=== PATIENT | female | born 1985 | race Caucasian/White ===

== ENCOUNTER 2018-08-19 12:24 | Emergency (ER) | payer OTHER ==
[~2018-08-19] VITALS: Ht 162.6 cm; Wt 74.8 kg
[~2018-08-19 12:24] MED LIST: ACETAMINOPHEN-1 EAC1 PO; BACTRIM DS TAB1 EACH PO; BENADRYL25 MG PO; CELEXA 20 MG TA20 M1 PO; CIPROFLOXACIN500 M1 PO; FLOMAX PO; IBUPROFEN 800800 M1 PO; KEFLEX500 MG; NAPROSYN500 MG PO; NOHOMEMEDICATIONS; NORCO 5-325 TA1 EACH PO; PERCOCET 5-3251 EACH PO; PERCOCET PO; PHENERGAN 25 MG25 M1 PO; PRENATAL PLUS1 EAC4 PO; STOMACH MED; ZOFRAN 4 MG ORAL4 M1 DIS; ZPAK PO
[2018-08-19] MEDS ORDERED: OMEPRAZOLE40 MG PO (12:50)
[2018-08-19] MEDS ORDERED: ADIPEX-P37.5 M1 PO (12:50)
[2018-08-19 13:12] LABS: URINE BILIRUBIN NEGATIVE (Negative); URINE BLOOD NEGATIVE (Negative); URINE CLARITY CLEAR; URINE COLOR YELLOW; URINE GLUCOSE-RANDOM NEGATIVE (Negative); URINE KETONES NEGATIVE (Negative); URINE LEUKOCYTES-REFLEX NEGATIVE (Negative); URINE NITRITE-REFLEX NEGATIVE (Negative); URINE PROTEIN NEGATIVE (Negative); URINE UROBILINOGEN 0.2 E.U./dl (0.2-1.0)
[2018-08-19 13:31] LABS: HEMATOCRIT 36.3 % (37.0-47.0); HEMOGLOBIN 12.6 gm/dL (12.0-15.0); MCH 27.7 pg (26.0-34.0); MCHC 34.7 g/dL (28.0-37.0); MCV 79.8 fL (80.0-100.0); MPV 8.2 fl. (7.2-11.1); NUCLEATED RBCS 0 /100WBC; PLATELET COUNT* 219 thou/uL (150-400); RBC 4.54 mil/uL (4.20-5.00); RDW-CV 13.4 % (10.5-14.5); WBC 12.2 thou/uL (4.0-11.0)
[2018-08-19 13:37] LABS: CALCIUM 8.8 mg/dL (8.5-10.1); CREATININE 0.7 mg/dL (0.6-1.3); POTASSIUM 3.9 mmol/L (3.5-5.1)
[2018-08-19 13:41] LABS: ALBUMIN 3.9 g/dL (3.4-5.0); TOTAL BILIRUBIN 0.4 mg/dL (<0.1-1.0)
[2018-08-19 13:58] LABS: ABSOLUTE BASOPHILS 0.1 thou/uL (0.0-0.2); ABSOLUTE EOSINOPHILS 0.1 thou/uL (0.0-0.7); ABSOLUTE LYMPHOCYTES 1.1 thou/uL (0.8-5.3); ABSOLUTE MONOCYTES 0.1 thou/uL (0.0-1.2); ABSOLUTE NEUTROPHILS 10.7 thou/uL (1.6-8.1)
[2018-08-19 14:00] LABS: PLATELET ESTIMATE ADEQUATE
[2018-08-19 16:00] VITALS: BP 135/80
== END 2018-08-19 16:00 | disposition home or self-care (01) ==
LOC: M.ERS 12:24
PROVIDERS: Nurse Practitioner Family
DX: K62.89 Other specified diseases of anus and rectum (principal); R19.7 Diarrhea, unspecified; J45.909 Unspecified asthma, uncomplicated; Z88.5 Allergy status to narcotic agent; Z88.8 Allergy status to other drugs, medicaments and biological substances; Z90.49 Acquired absence of other specified parts of digestive tract; Z90.89 Acquired absence of other organs

== ENCOUNTER 2019-06-30 23:48 | Emergency (ER) | payer OTHER ==
[~2019-06-30] VITALS: Ht 165.1 cm; Wt 63.5 kg
[~2019-06-30 23:48] MED LIST changes: +ADIPEX-P37.5 M1 PO; +OMEPRAZOLE40 MG PO
[2019-07-01 00:09] LABS: ABSOLUTE EOSINOPHILS 0.1 thou/uL (0.0-0.7); ABSOLUTE LYMPHOCYTES 2.4 thou/uL (0.8-5.3); ABSOLUTE MONOCYTES 0.5 thou/uL (0.0-1.2); ABSOLUTE NEUTROPHILS 6.7 thou/uL (1.6-8.1); BASOPHILS 0.5 %; EOSINOPHILS 1.4 %; HEMOGLOBIN 13.3 gm/dL (12.0-15.0); LYMPHOCYTES 24.6 %; MCH 28.3 pg (26.0-34.0); MCHC 34.9 g/dL (28.0-37.0); MCV 81.1 fL (80.0-100.0); MONOCYTES 4.9 %; MPV 7.8 fl. (7.2-11.1); NUCLEATED RBCS 0 /100WBC; PLATELET COUNT* 300 thou/uL (150-400); POLYS 68.6 %; RBC 4.69 mil/uL (4.20-5.00); RDW-CV 12.8 % (10.5-14.5); WBC 9.8 thou/uL (4.0-11.0)
[2019-07-01 00:10] LABS: URINE BILIRUBIN NEGATIVE (Negative); URINE BLOOD 3+ (Negative); URINE CLARITY CLEAR; URINE COLOR YELLOW; URINE GLUCOSE-RANDOM NEGATIVE (Negative); URINE KETONES NEGATIVE (Negative); URINE LEUKOCYTES-REFLEX NEGATIVE (Negative); URINE NITRITE-REFLEX NEGATIVE (Negative); URINE PROTEIN NEGATIVE (Negative); URINE SPECIFIC GRAVITY 1.015 (1.005-1.030); URINE UROBILINOGEN 0.2 E.U./dl (0.2-1.0)
[2019-07-01 00:18] LABS: CALCIUM 8.7 mg/dL (8.5-10.1); POTASSIUM 3.8 mmol/L (3.5-5.1)
[2019-07-01 00:23] LABS: CRYSTALS None Seen /LPF (None Seen); HYALINE CASTS 0-3 Few /LPF (None Seen); MUCUS 0-3 Light strn/LPF (None Seen); SQUAMOUS 0-3 Few /LPF (0-3); URINE RBC >20 Many /HPF (0-2); URINE WBC-REFLEX 0-5 Rare /HPF (0-5)
[2019-07-01 00:23] LABS: ALBUMIN 4.1 g/dL (3.4-5.0); TOTAL BILIRUBIN 0.3 mg/dL (<0.1-1.0); TOTAL PROTEIN 7.5 g/dL (6.4-8.2)
[2019-07-01] MEDS ORDERED: PERCOCET 5-3251 EACH PO (01:10)
[2019-07-01] MEDS ORDERED: ZPAK PO (01:10)
[2019-07-01] MEDS ORDERED: ZOFRAN ODT4 MG DISSOLVE (01:10)
[2019-07-01] MEDS ORDERED: LEVAQUIN 500 M500 MG PO (01:10)
[2019-07-01] MEDS ORDERED: FLOMAX0.4 MG PO (01:10)
[2019-07-01 01:30] VITALS: BP 157/88
== END 2019-07-01 01:36 | disposition home or self-care (01) ==
LOC: M.ERS 23:48
PROVIDERS: Family Medicine
DX: N20.0 Calculus of kidney (principal); J18.9 Pneumonia, unspecified organism; J45.909 Unspecified asthma, uncomplicated; Z88.5 Allergy status to narcotic agent; Z98.51 Tubal ligation status; Z90.49 Acquired absence of other specified parts of digestive tract

== ENCOUNTER 2019-08-18 23:02 | Emergency (ER) | payer OTHER ==
[~2019-08-18] VITALS: Ht 162.6 cm; Wt 65.3 kg
[~2019-08-18 23:02] MED LIST changes: +FLOMAX0.4 MG PO; +LEVAQUIN 500 M500 MG PO; +ZOFRAN ODT4 MG DISSOLVE
[2019-08-18] MEDS ORDERED: PROTONIX40 M4 PO (23:13)
[2019-08-18 23:59] LABS: HEMATOCRIT 40.5 % (37.0-47.0); MCHC 34.6 g/dL (28.0-37.0); MPV 8.3 fl. (7.2-11.1); NUCLEATED RBCS 0 /100WBC; PLATELET COUNT* 261 thou/uL (150-400); RDW-CV 13.3 % (10.5-14.5); WBC 15.9 thou/uL (4.0-11.0)
[2019-08-19 00:04] LABS: CALCIUM 8.9 mg/dL (8.5-10.1); POTASSIUM 3.9 mmol/L (3.5-5.1)
[2019-08-19 00:07] LABS: PROTIME 10.7 Seconds (9.20-11.50)
[2019-08-19 00:14] LABS: ALBUMIN 4.2 g/dL (3.4-5.0); MAGNESIUM 2.3 mg/dL (1.8-2.4); TOTAL BILIRUBIN 0.6 mg/dL (<0.1-1.0); TOTAL PROTEIN 7.8 g/dL (6.4-8.2)
[2019-08-19 01:50] LABS: ABSOLUTE EOSINOPHILS 0.3 thou/uL (0.0-0.7); ABSOLUTE LYMPHOCYTES 1.6 thou/uL (0.8-5.3); ABSOLUTE MONOCYTES 0.3 thou/uL (0.0-1.2); ABSOLUTE NEUTROPHILS 13.7 thou/uL (1.6-8.1); PLATELET ESTIMATE ADEQUATE; TOXIC GRANULATION 1+
[2019-08-19] MEDS ORDERED: ALBUTEROL2.5 MG/31 INH (02:09)
[2019-08-19] MEDS ORDERED: PROAIR HFA8.5 GM INH (02:09)
[2019-08-19] MEDS ORDERED: AUGMENTIN 875-1 EACH PO (02:09)
[2019-08-19] MEDS ORDERED: PREDNISONE50 MG PO (02:09)
[2019-08-19] MEDS ORDERED: PERCOCET 7.5-31 EAC1 PO (02:48)
[2019-08-19 02:49] VITALS: BP 124/68
--- NOTE | 2019-08-21 10:55 | EKG ---
[place] [address] ELECTROCARDIOGRAM REPORT Name: RON OJEDA KARLI Room: [facility]#: [id number] Admission: 08/18/19 Attend Phys: Discharge: 08/19/19 Date of : 85 Date of Service: 08/18/198 Report #: [id number] THIS REPORT FOR: //name// [facility] ED Test Date: 2019-08-18 Test Time: 23:08:56 Pat Name: RON OJEDA Department: Room: Gender: F [employer]: : [id number] Requested By: Thelma Rose Order Number: [id number] Maikol MD: Hao Go Measurements Intervals [place] Rate: 75 P: 55 [place]: 144 QRS: 68 QRSD: 96 T: 36 QT: 396 QTc: 443 Interpretive Statements Sinus rhythm Compared to ECG 01/24/2011 19:24:17 No significant changes Electronically Signed On 08-21-2019 10:55:14 CDT by Hao Go [email or web address] <ELECTRONICALLY SIGNED> By: Hao Go MD, [facility] 08/21/19 1055 07 07 Hao Go MD, [facility] /EPI
== END 2019-08-19 02:50 | disposition still patient (30) ==
LOC: M.ERS 23:02
PROVIDERS: Emergency Medicine
DX: J06.9 Acute upper respiratory infection, unspecified (principal); J45.909 Unspecified asthma, uncomplicated; Z20.828 Contact with and (suspected) exposure to other viral communicable diseases; Z90.49 Acquired absence of other specified parts of digestive tract; Z98.51 Tubal ligation status; Z88.6 Allergy status to analgesic agent

== ENCOUNTER 2020-04-24 22:59 | Emergency (ER) | payer OTHER ==
[~2020-04-24] VITALS: Ht 162.6 cm; Wt 61.2 kg
[~2020-04-24 22:59] MED LIST changes: +ALBUTEROL2.5 MG/31 INH; +AUGMENTIN 875-1 EACH PO; +PERCOCET 7.5-31 EAC1 PO; +PREDNISONE50 MG PO; +PROAIR HFA8.5 GM INH; +PROTONIX40 M4 PO
[2020-04-24] MEDS ORDERED: ADIPEX-P37.5 MG PO (23:12)
[2020-04-24 23:53] LABS: URINE BILIRUBIN NEGATIVE (Negative); URINE BLOOD NEGATIVE (Negative); URINE CLARITY CLEAR; URINE COLOR YELLOW; URINE GLUCOSE-RANDOM NEGATIVE (Negative); URINE KETONES TRACE (Negative); URINE LEUKOCYTES-REFLEX NEGATIVE (Negative); URINE NITRITE-REFLEX NEGATIVE (Negative); URINE PROTEIN NEGATIVE (Negative); URINE SPECIFIC GRAVITY >= 1.030 (1.005-1.030); URINE UROBILINOGEN 0.2 E.U./dl (0.2-1.0)
[2020-04-24 23:55] LABS: HEMATOCRIT 39.5 % (37.0-47.0); HEMOGLOBIN 13.2 gm/dL (12.0-15.0); MCH 27.2 pg (26.0-34.0); MCHC 33.5 g/dL (28.0-37.0); MCV 81.2 fL (80.0-100.0); MPV 7.8 fl. (7.2-11.1); RBC 4.86 mil/uL (4.20-5.00); RDW-CV 13.8 % (10.5-14.5); WBC 7.1 thou/uL (4.0-11.0)
[2020-04-25 00:04] LABS: CALCIUM 9.5 mg/dL (8.5-10.1); CREATININE 0.8 mg/dL (0.6-1.3)
[2020-04-25 00:09] LABS: ALBUMIN 3.7 g/dL (3.4-5.0); TOTAL BILIRUBIN 0.4 mg/dL (<0.1-1.0); TOTAL PROTEIN 6.9 g/dL (6.4-8.2)
[2020-04-25] MEDS ORDERED: ULTRAM 50MG TAB50 MG PO (02:38)
[2020-04-25] MEDS ORDERED: ZOFRAN ODT4 MG PO (02:38)
[2020-04-25 02:47] VITALS: BP 137/81
== END 2020-04-25 02:48 | disposition home or self-care (01) ==
LOC: M.ERS 22:59
PROVIDERS: Personal Emergency Response Attendant
DX: N83.201 Unspecified ovarian cyst, right side (principal); J45.909 Unspecified asthma, uncomplicated; Z87.442 Personal history of urinary calculi; Z90.49 Acquired absence of other specified parts of digestive tract; Z98.51 Tubal ligation status; Z79.899 Other long term (current) drug therapy; Z88.6 Allergy status to analgesic agent; Z88.5 Allergy status to narcotic agent